=== PATIENT | female | born 1950 | race Caucasian/White ===

== ENCOUNTER 2017-04-23 10:58 | Emergency (ER) | payer OTHER ==
[2017-04-23 11:05] VITALS: BP 172/90; BMI 46.7
--- NOTE | 2017-04-23 11:49 | DR.GENAD ---
HPI - PCP Primary Care Physician: FERNY - Complaint/Symptoms Chief Complaint Doctors Comments: Patient also c/o tingling sensation in the right upper extremtiy. Denies pain. 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 - Family History History of Family Medical Conditions: Yes Family Medical History: Diabetes Mellitus, Cancer, [place] - Social History Does any household member use tobacco: No Alcohol Use: None Do you use any recreational Drugs:: No Lives With: Alone Lives Where: Home - infectious screening In the last 2 months have you had wt loss of >10#?: NO Have you had fever, night sweats or hemotysis?: No Have you traveled outside the country in the last 6 months?: Yes Details about traveling: [facility] 03/19/2017 Isolation: Standard ROS - Review of Systems Eyes: No Symptoms Reported ENTM: No Symptoms Reported Respiratoy: No Symptoms Reported Cardiovascular: No Symptoms Reported Gastrointestinal/Abdominal: No Symptoms Reported Genitourinary: No Symptoms Reported Neurological: No Symptoms Reported Musculoskeletal: Other (right upper extremiting tingling sensation) Integumentary: No Symptoms Reported Hematologic/Lymphatic: No Symptoms Reported Endocrine: No Symptoms Reported Psychiatric: No Symptoms Reported All Other Systems: Reviewed and Negative PE - Vital Signs Vitals: Temperature 98 F Pulse Rate 80 Respiratory Rate 20 Blood Pressure 172/90 O2 Sat by Pulse Oximetry 98 - General General Appearance: Alert, In No Apparent Distress - Head Head Exam: Normal Inspection, Atraumatic - Eyes Eye exam: Normal Appearance, PERRL, EOMI - ENT ENT Exam: Normal Exam External Ear Exam: Normal External Inspection TM/Canal Exam: Bilateral Normal Nose Exam: Normal Nose Exam Mouth Exam: Normal Inspection Throat Exam: Normal Inspection - Neck Neck Exam: Normal Inspection, Full ROM - Chest Chest Inspection: Normal Inspection - Respiratory Respiratory Exam: Normal Lung Sounds Bilat Respiratory Exam: Bilateral Clear to Auscultation - Cardiovascular Cardiovascular Exam: Regular Rate - Abdominal Exam Abdominal Exam: Normal Inspection Abdominal Tenderness: negative: RUQ, RLQ, LUQ, LLQ, Epigastrium, Suprapubic, Diffuse, Mild, Moderate, Severe, Other - Extremities Extremities Exam: Normal Inspection - Back Back Exam: Normal Inspection, Full ROM - Neurologic Neurological Exam: Alert, Oriented X3, CN II-XII Intact - Psychiatric Psychiatric Exam: Normal Affect, Normal Mood - Skin Skin Exam: Warm, Dry, Intact ROR - XRAY XRAY Interpreted by: Radiologist (Upper extremity: There is moderate multilevel spondylosis within the cervical spine most severe at C4-5,C5-6 and C6-7 with miold multilevel ficet arthropathy and uncovertebral hypertrophy which appears to be slightly asymmetrically worse on the left. No fracture spondyloslisthesis.) - Diagnosis Discharge Problem: Moderate multilevel spondylosis, Spondylosis of cervical spine with myelopathy - Discharge Plan Condition: Stable - Follow ups/Referrals Follow ups/Referrals: STEPH HUDDLESTON [Primary Care Provider] - 3 days - Instructions
--- NOTE | 2017-04-23 12:50 | RAD ---
The four views of the cervical spine Indication: Upper extremity tingling Findings: There is moderate multilevel spondylosis within the cervical spine most severe at C4-5, C5 -6 and C6-7 with mild multilevel facet arthropathy and uncovertebral hypertrophy which appears to be slightly asymmetrically worse on the left. No fracture spondylolisthesis. No prevertebral soft tiss ue swelling. Posterior elements demonstrate normal alignment. Cervicothoracic junction is intact. At lantoaxial joint is symmetric. Impression: No acute radiographic abnormality within the cervical spine. There is moderate multileve l spondylosis with brsy-uehbpej-hvah-right facet arthropathy and uncovertebral hypertrophy potential ly causing spinal canal and or neural foraminal narrowing and source of patient's radicular symptoms . Correlation with cervical spine MRI is recommended on a nonemergent basis. Reported By:
== END 2017-04-23 13:32 | disposition home or self-care (01) ==
LOC: ER 11:16
DX: M47.12 Other spondylosis with myelopathy, cervical region (principal)
CPT/HCPCS: 72040; 99282

== ENCOUNTER 2025-02-14 23:22 | Observation (INO) ==
--- NOTE | 2025-02-14 23:31 | DR.WEAKNES ---
HPI Time Seen Time Seen by Provider: 02/14/25 23:31 HPI Comment HPI Comment: 74 y/o with htn, dm and RA developed "numbness" in the rt face, tongue and teeth this afternoon; she later noticed tingling in her the fingers of her rt hand and then down into her rt foot so she came on in; she's noted no weakness, ataxia, dysarthria, dysphagia, stumbling or memory issues. She denies cp, sob, abd pain, n/v/d. 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 Family History Family Medical History: Diabetes Mellitus, Cancer and [place] Social History Do you use any recreational Drugs:: No ROS Review of Systems Constitutional: No Symptoms Reported Eyes: No Symptoms Reported ENTM: No Symptoms Reported Respiratoy: No Symptoms Reported Cardiovascular: No Symptoms Reported Gastrointestinal/Abdominal: No Symptoms Reported Genitourinary: No Symptoms Reported Neurological: See HPI; negative Headache, Weakness, Dizziness or Problems Walking Musculoskeletal: No Symptoms Reported Integumentary: No Symptoms Reported Hematologic/Lymphatic: No Symptoms Reported Endocrine: No Symptoms Reported Psychiatric: No Symptoms Reported PE Vital Signs Vitals: Vital Signs Temperature 98.3 F Pulse Rate 98 Pulse Rate 94 Pulse Rate 103 Pulse Rate 91 Respiratory Rate 20 Blood Pressure 132/63 O2 Sat by Pulse Oximetry 94 O2 Sat by Pulse Oximetry 96 O2 Sat by Pulse Oximetry 95 O2 Sat by Pulse Oximetry 94 General Limitations: No Limitations General Appearance: Alert and In No Apparent Distress Head Head Exam: Normal Inspection Eyes Eye exam: Normal Appearance Eyelids: Normal Inspection: Bilateral Pupils: Regular, Round: Bilateral Sclera/Conjunctival: Normal Inspection: Bilateral Anterior Chamber: Normal Inspection: Bilateral ENT ENT Exam: Normal Exam Mouth Exam: Normal Inspection Throat Exam: Normal Inspection Neck Neck Exam: Normal Inspection Chest Chest Inspection: Normal Inspection Respiratory Respiratory Exam: Normal Lung Sounds Bilat Respiratory Exam: Bilateral: Clear to Auscultation Cardiovascular Cardiovascular Exam: Regular Rate and Normal Rhythm Abdominal Exam Abdominal Exam: Normal Inspection, Normal Bowel Sounds and Soft Extremities Extremities Exam: Normal Inspection Back Back Exam: Normal Inspection Neurologic Neurological Exam: Alert and Oriented X3 Speech: Fluid Speech Motor Strength - LUE: 5/5 Motor Strength - RUE: 5/5 Motor Strength - LLE: 5/5 Motor Strength - RLE: 5/5 Psychiatric Psychiatric Exam: Normal Affect and Normal Mood Skin Skin Exam: Warm, Dry, Intact and Normal Color ROR Labs Reviewed Laboratory Results Reviewed?: Yes 02/14/25 23:53 02/14/25 23:53 Laboratory: WBC 6.7 X10^3/uL (3.6-10.0) 02/14/25 23:53 RBC 4.31 X10^6/uL (3.5-5.4) 02/14/25 23:53 Hgb 12.8 g/dL (12.0-16.0) 02/14/25 23:53 Hct 36.0 % (36.0-47.0) 02/14/25 23:53 MCV 83.5 fL (80.0-100.0) 02/14/25 23:53 MCH 29.6 pg (27.0-34.0) 02/14/25 23:53 MCHC 35.5 g/dL (33.0-35.0) H 02/14/25 23:53 RDW 13.7 % (11.6-16.5) 02/14/25 23:53 Plt Count 223 X10^3/uL (150.0-450.0) 02/14/25 23:53 MPV 8.1 fL (7.4-11.0) 02/14/25 23:53 Neut % (Auto) 61.8 % (42.0-75.0) 02/14/25 23:53 Lymph % (Auto) 25.7 % (21.0-51.0) 02/14/25 23:53 [place] % (Auto) 11.1 % (0.0-13.0) 02/14/25 23:53 Eos % (Auto) 0.7 % (0.9-2.9) L 02/14/25 23:53 Baso % (Auto) 0.7 % (0.2-1.0) 02/14/25 23:53 Neut # (Auto) 4.2 x10^3/uL (2.2-4.8) 02/14/25 23:53 Lymph # (Auto) 1.7 X10^3/uL (1.3-2.9) 02/14/25 23:53 [place] # (Auto) 0.7 x10^3/uL (0.3-0.8) 02/14/25 23:53 Eos # (Auto) 0.0 x10^3/uL (0.0-0.2) 02/14/25 23:53 Baso # (Auto) 0.0 X10^3/uL (0.0-0.1) 02/14/25 23:53 Absolute Nucleated RBC 0.2 /100WBC 02/14/25 23:53 PT 13.0 SECONDS (11.8-14.3) 02/14/25 23:53 INR Target Range - 02/14/25 23:53 INR 0.97 (0.8-1.3) 02/14/25 23:53 APTT 28.2 SECONDS (22.9-36.5) 02/14/25 23:53 PTT Comment - 02/14/25 23:53 Fibrinogen 280 mg/dL (239-489) 02/14/25 23:53 Sodium 140 mmol/L (136-145) 02/14/25 23:53 Corrected Sodium 141 mmol/L (136-145) 02/14/25 23:53 Potassium 3.9 mmol/L (3.5-5.1) 02/14/25 23:53 Chloride 102 mmol/L (98-107) 02/14/25 23:53 Carbon Dioxide 28.8 mmol/L (21-32) 02/14/25 23:53 BUN 18 mg/dL (7-18) 02/14/25 23:53 Creatinine 0.97 mg/dL (0.55-1.02) 02/14/25 23:53 Est GFR (MDRD) Af Amer > 60 (>60) 02/14/25 23:53 Est GFR (MDRD) Non-Af 60 (>60) 02/14/25 23:53 Glucose 133 mg/dL (65-99) H 02/14/25 23:53 Calcium 9.3 mg/dL (8.5-10.1) 02/14/25 23:53 Corrected Calcium TNP 02/14/25 23:53 Total Bilirubin 0.40 mg/dL (0.2-1.0) 02/14/25 23:53 AST 16 Units/L (15-37) 02/14/25 23:53 ALT 20 Units/L (12-78) 02/14/25 23:53 Alkaline Phosphatase 67 Units/L (46-116) 02/14/25 23:53 Creatine Kinase 39 Units/L (26-192) 02/14/25 23:53 Troponin I High Sens 8.5 ng/L (4.0-60.0) 02/14/25 23:53 Total Protein 6.7 g/dL (6.4-8.2) 02/14/25 23:53 Albumin 3.6 g/dL (3.4-5.0) 02/14/25 23:53 Globulin 3.1 g/dL (2.5-4.5) 02/14/25 23:53 Albumin/Globulin Ratio 1.2 Ratio (1.1-2.1) 02/14/25 23:53 Triglycerides 119 mg/dL (0-150) 02/14/25 23:53 Cholesterol 145 mg/dL (0-200) 02/14/25 23:53 LDL Cholesterol, Calc 58 mg/dL (0-100) 02/14/25 23:53 HDL Cholesterol 63 mg/dL (40-60) H 02/14/25 23:53 Cholesterol/HDL Ratio 2.3 (0.0-5.0) 02/14/25 23:53 Specimen Type Clean catch urine 02/15/25 00:20 Urine Color Yellow (YELLOW) 02/15/25 00:20 Urine Appearance Hazy (CLEAR) 02/15/25 00:20 Urine pH 6.5 (5.0 - 8.0) 02/15/25 00:20 Ur Specific [place] 1.010 (1.000-1.030) 02/15/25 00:20 Urine Protein Negative (NEGATIVE) 02/15/25 00:20 Urine Glucose (UA) Negative (NEGATIVE) 02/15/25 00:20 Urine Ketones Negative (NEGATIVE) 02/15/25 00:20 Urine Blood Negative (NEGATIVE) 02/15/25 00:20 Urine Nitrite Negative (NEGATIVE) 02/15/25 00:20 Urine Bilirubin Negative (NEGATIVE) 02/15/25 00:20 Urine Urobilinogen Normal (NORMAL) 02/15/25 00:20 Ur Leukocyte Esterase 2+ (NEGATIVE) 02/15/25 00:20 Urine RBC 3-5 /HPF (0-3) A 02/15/25 00:20 Urine WBC 5-10 /HPF (0-5) A 02/15/25 00:20 Ur Squamous Epith Cells Moderate /HPF (NEGATIVE) 02/15/25 00:20 Amorphous Sediment 1+ /HPF (NEGATIVE) 02/15/25 00:20 Urine Bacteria Trace /HPF (NEGATIVE) 02/15/25 00:20 Granular Casts Rare /LPF (NEGATIVE) 02/15/25 00:20 Ur Culture Indicated? No/not indicated 02/15/25 00:20 Blood Type O POSITIVE 02/14/25 23:55 Antibody Screen Negative 02/14/25 23:53 Other Results Comments: 74 y/o with dm, htn and RA evaluated to telestroke team; advised to keep overnight and get mri; she's to receive asa 324 and plavix 300 in the meantime. XRAY XRAY Interpreted by: Radiologist X-ray Results: ct brain: No evidence of acute intracranial process. Opioid Opioid Risk Tool Age (Chavez box if 16-45): No Total: 0 Total Score Risk Category: Low Risk Copyright: Evgeny COTA predicting aberrant behaviors Discharge Plan Diagnosis Discharge Problem: Numbness and tingling of right side of face, Right sided numbness Discharge Plan Patient Disposition: ADMITTED INPATIENT Condition: Stable Prescriptions: No Action carvedilol 12.5 mg tablet 12.5 mg PO BID (DME) OneTouch Ultra Test Strip MISCELLANEOUS glimepiride 1 mg tablet PO ergocalciferol (vitamin D2) [Vitamin D2] 1,250 mcg (50,000 unit) capsule PO hydroxychloroquine 200 mg tablet 200 mg PO BID losartan-hydrochlorothiazide 50-12.5 mg tablet 1 tab PO QDAY metformin 500 mg tablet extended release 24 hr 1,000 mg PO BID Ozempic 1 mg/dose (2 mg/1.5 mL) Pen Injector SUBCUT Health Concerns: Post Hospitalization: new medications and changes needed to prevent readmission or further decline. Pt educated and given instructions on all concerns. Plan of Treatment: Continue with present treatment and follow up plan. Pt is to keep follow up appointment as instructed and take medications as ordered. Follow ups/Referrals Follow ups/Referrals: [facility],None [Primary Care Provider] - 3 days
[2025-02-14 23:36] VITALS: BMI 40.6
--- NOTE | 2025-02-15 00:04 | EKG ---
Test Reason : right side numbess Blood Pressure : */* mmHG Vent. Rate : 84 BPM Atrial Rate : 84 BPM P-R Int : 174 ms QRS Dur : 98 ms QT Int : 376 ms P-R-T Axes : 49 23 36 degrees QTc Int : 444 ms Sinus rhythm with premature supraventricular complexes Otherwise normal ECG No previous ECGs available Confirmed by Dalton Norman MD ([id number]) on 02/15/2025 5:19:14 AM Referred By: Confirmed By: Dalton Norman MD
[2025-02-15 00:05] LABS: MEAN CORPUSCULAR HEMOGLOBIN 29.6 pg (27.0-34.0); PLATELET COUNT 223 X10^3/uL (150.0-450.0); RED BLOOD COUNT 4.31 X10^6/uL (3.5-5.4); RED CELL DISTRIBUTION WIDTH 13.7 % (11.6-16.5)
[2025-02-15 00:08] LABS: BASOPHILS % (AUTO) 0.7 % (0.2-1.0); EOSINOPHILS % (AUTO) 0.7 % (0.9-2.9); HEMOGLOBIN 12.8 g/dL (12.0-16.0); INR 0.97 (0.8-1.3); LYMPHOCYTES # (AUTO) 1.7 X10^3/uL (1.3-2.9); LYMPHOCYTES % (AUTO) 25.7 % (21.0-51.0); MEAN CORPUSCULAR HGB CONC 35.5 g/dL (33.0-35.0); MEAN CORPUSCULAR VOLUME 83.5 fL (80.0-100.0); MEAN PLATELET VOLUME 8.1 fL (7.4-11.0); MONOCYTES # (AUTO) 0.7 x10^3/uL (0.3-0.8); MONOCYTES % (AUTO) 11.1 % (0.0-13.0); NEUTROPHILS # (AUTO) 4.2 x10^3/uL (2.2-4.8); NEUTROPHILS % (AUTO) 61.8 % (42.0-75.0); WHITE BLOOD COUNT 6.7 X10^3/uL (3.6-10.0)
[2025-02-15 00:14] LABS: ALANINE AMINOTRANSFERASE 20 Units/L (12-78); ALBUMIN 3.6 g/dL (3.4-5.0); ALKALINE PHOSPHATASE 67 Units/L (46-116); ASPARTATE AMINO TRANSFERASE 16 Units/L (15-37); BLOOD UREA NITROGEN 18 mg/dL (7-18); CALCIUM 9.3 mg/dL (8.5-10.1); CARBON DIOXIDE 28.8 mmol/L (21-32); CHLORIDE 102 mmol/L (98-107); CHOL/HDL RATIO 2.3 (0.0-5.0); CHOLESTEROL 145 mg/dL (0-200); COR NA(FOR HYPERGLY) 141 mmol/L (136-145); CREATINE KINASE 39 Units/L (26-192); CREATININE 0.97 mg/dL (0.55-1.02); GLUCOSE 133 mg/dL (65-99); HDL CHOLESTEROL 63 mg/dL (40-60); POTASSIUM 3.9 mmol/L (3.5-5.1); SODIUM 140 mmol/L (136-145); TOTAL PROTEIN 6.7 g/dL (6.4-8.2); TRIGLYCERIDES 119 mg/dL (0-150); eGFR NON BLACK RACES 60 (>60)
--- NOTE | 2025-02-15 00:23 | CT ---
EXAM: CT HEAD WITHOUT CONTRAST HISTORY: Pt ambulatory in er with c/o right side numbness. 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 TECHNIQUE: Axial CT images were obtained through the brain without contrast. All CT scans at this facility use dose modulation, iterative reconstruction, and/or weight based dosi ng when appropriate to reduce radiation dose to as low as reasonably achievable. FINDINGS: BRAIN: There is moderate diffuse atrophy with proportionate enlargement of the cerebral sulci and laura tricular system. Decreased attenuation in the periventricular white matter is compatible with but n ot specific for chronic small vessel ischemic changes. No evidence of acute infarct intra or extraa xial hemorrhage mass effect or hydrocephalus. CALVARIUM: Normal ADDITIONAL FINDINGS: The visualized paranasal sinuses and mastoid air cells are clear. Orbits are savita ssly unremarkable. IMPRESSION: No evidence of acute intracranial process. THIS IS AN ELECTRONICALLY VERIFIED FINAL REPORT 02/15/2025 12:19 AM - Electronically signed by Dania Encarnacion MD
[2025-02-15 00:33] LABS: BILIRUBIN,URINE NEGATIVE (NEGATIVE); BLOOD/HEMOGLOBIN,URINE NEGATIVE (NEGATIVE); GLUCOSE, URINE NEGATIVE (NEGATIVE); KETONES,URINE NEGATIVE (NEGATIVE); LEUKOCYTE ESTERASE ,URINE 2+ (NEGATIVE); NITRITES,URINE NEGATIVE (NEGATIVE); PH,URINE 6.5 (5.0 - 8.0); PROTEIN,URINE NEGATIVE (NEGATIVE); UROBILINOGEN,URINE NORMAL (NORMAL)
[2025-02-15 00:43] LABS: APPEARANCE,URINE HAZY (CLEAR); COLOR,URINE YELLOW (YELLOW)
[2025-02-15 00:47] LABS: BACTERIA,URINE TRACE /HPF (NEGATIVE); GRANULAR CASTS,URINE RARE /LPF (NEGATIVE); SQUAMOUS EPITHELIAL CELL,UR MODERATE /HPF (NEGATIVE)
[2025-02-15] MEDS: PLAVIX PO STA (01:22)
[2025-02-15] MEDS: ASPIRIN 81 MG CHEWTAB PO STA (01:23)
[2025-02-15] MEDS: CONSULT PHARMACY - POTASSIUM & MAGNESIUM XX SCH (01:25)
[2025-02-15 06:08] LABS: BASOPHILS % (AUTO) 0.7 % (0.2-1.0); EOSINOPHILS % (AUTO) 0.8 % (0.9-2.9); HEMATOCRIT 35.7 % (36.0-47.0); HEMOGLOBIN 12.3 g/dL (12.0-16.0); LYMPHOCYTES # (AUTO) 1.4 X10^3/uL (1.3-2.9); LYMPHOCYTES % (AUTO) 24.7 % (21.0-51.0); MEAN CORPUSCULAR HGB CONC 34.6 g/dL (33.0-35.0); MEAN CORPUSCULAR VOLUME 83.9 fL (80.0-100.0); MONOCYTES # (AUTO) 0.7 x10^3/uL (0.3-0.8); MONOCYTES % (AUTO) 11.9 % (0.0-13.0); NEUTROPHILS # (AUTO) 3.5 x10^3/uL (2.2-4.8); NEUTROPHILS % (AUTO) 61.9 % (42.0-75.0); PLATELET COUNT 208 X10^3/uL (150.0-450.0); RED BLOOD COUNT 4.25 X10^6/uL (3.5-5.4); RED CELL DISTRIBUTION WIDTH 13.6 % (11.6-16.5); WHITE BLOOD COUNT 5.7 X10^3/uL (3.6-10.0)
[2025-02-15 06:25] LABS: ALANINE AMINOTRANSFERASE 18 Units/L (12-78); ALBUMIN 3.3 g/dL (3.4-5.0); ALKALINE PHOSPHATASE 58 Units/L (46-116); ASPARTATE AMINO TRANSFERASE 17 Units/L (15-37); BLOOD UREA NITROGEN 21 mg/dL (7-18); CALCIUM 9.2 mg/dL (8.5-10.1); CARBON DIOXIDE 31.2 mmol/L (21-32); CHLORIDE 103 mmol/L (98-107); COR CA(FOR HYPOALB) 9.8 mg/dL (8.5-10.1); COR NA(FOR HYPERGLY) 142 mmol/L (136-145); GLUCOSE 115 mg/dL (65-99); POTASSIUM 4.1 mmol/L (3.5-5.1); SODIUM 142 mmol/L (136-145); TOTAL PROTEIN 6.2 g/dL (6.4-8.2); eGFR NON BLACK RACES > 60 (>60)
--- NOTE | 2025-02-15 09:02 | RAD ---
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 No pneumothorax or effusion. Heart size is normal. The bones are unremarkable. IMPRESSION: 1. No significant abnormality THIS IS AN ELECTRONICALLY VERIFIED FINAL REPORT 02/15/2025 8:39 AM - Electronically signed by Bernardo Mg MD
[2025-02-15] MEDS: PLAQUENIL PO SCH (09:23)
[2025-02-15] MEDS: OXYBUTYNIN CHLORIDE ER PO SCH (09:23)
[2025-02-15] MEDS: COREG TAB 12.5 MG PO SCH (09:23)
[2025-02-15] MEDS: HYZAAR 50/12.5 MG PO SCH (09:23)
[2025-02-15] MEDS ORDERED: NovoLIN R (or HumuLIN R) SUBCUT PRN (09:55)
[2025-02-15] MEDS ORDERED: MULTIHANCE INJ VIAL ONE (10:45)
[2025-02-15] MEDS ORDERED: APRESOLINE INJ 20 MG VIAL IVP PRN (12:42)
--- NOTE | 2025-02-15 19:52 | MRI ---
EXAM: BRAIN W&W/O CON HISTORY: There is concern for acute infarction COMPARISON: None. TECHNIQUE: Multiplanar and multisequence MR images of the brain was obtained without and with IV contrast. FINDINGS: There is a subcentimeter punctate foci of restricted diffusion located in the left thalamus which dem onstrates corresponding low signal on the apparent diffusion coefficient map and high signal on the T 2 FLAIR sequence consistent with an acute infarct. There is an old infarct measuring 7 x 6 mm located in the right midbrain at the region of the cortica l spinal tracts. The ventricles are of normal size, shape, and contour for the patient's age. There are small nonspecific punctate areas of T2 weighted and T2 FLAIR weighted signal abnormalities in the deep frontal parietal white matter most likely representing small vessel ischemic changes whic h is to a degree I would consider within normal limits for the patient's stated age. The visualized intracranial vascular flow voids are unremarkable. There are no areas of restricted diffusion to suggest an acute infarct. There is no evidence of an intracranial mass lesion, intracranial hemorrhage, or hydrocephalus. The visualized portions of the orbits, calvarium, and skull base demonstrate no significant abnormali ties. There are no areas of masslike enhancement on the postcontrast sequences. IMPRESSION: 1. THERE IS A SUBCENTIMETER PUNCTATE FOCI OF RESTRICTED DIFFUSION LOCATED IN THE LEFT THALAMUS WHICH DEMONSTRATES CORRESPONDING LOW SIGNAL ON THE APPARENT DIFFUSION COEFFICIENT MAP AND HIGH SIGNAL ON TH E T2 FLAIR SEQUENCE CONSISTENT WITH AN ACUTE INFARCT. 2. THERE IS AN OLD INFARCT MEASURING 7 X 6 MM LOCATED IN THE RIGHT MIDBRAIN AT THE REGION OF THE FLOYD ICAL SPINAL TRACTS. 3. THERE ARE NO AREAS OF MASSLIKE ENHANCEMENT ON THE POSTCONTRAST SEQUENCES. THIS IS AN ELECTRONICALLY VERIFIED FINAL REPORT 02/15/2025 7:49 PM - Electronically signed by Sukhdeep Guillaume MD
[2025-02-16 06:44] LABS: BASOPHILS % (AUTO) 0.6 % (0.2-1.0); EOSINOPHILS # (AUTO) 0.1 x10^3/uL (0.0-0.2); HEMATOCRIT 36.1 % (36.0-47.0); HEMOGLOBIN 12.5 g/dL (12.0-16.0); LYMPHOCYTES # (AUTO) 1.1 X10^3/uL (1.3-2.9); LYMPHOCYTES % (AUTO) 20.8 % (21.0-51.0); MEAN CORPUSCULAR HEMOGLOBIN 29.4 pg (27.0-34.0); MEAN CORPUSCULAR HGB CONC 34.7 g/dL (33.0-35.0); MEAN CORPUSCULAR VOLUME 84.8 fL (80.0-100.0); MEAN PLATELET VOLUME 8.5 fL (7.4-11.0); MONOCYTES # (AUTO) 0.6 x10^3/uL (0.3-0.8); MONOCYTES % (AUTO) 11.9 % (0.0-13.0); NEUTROPHILS # (AUTO) 3.5 x10^3/uL (2.2-4.8); NEUTROPHILS % (AUTO) 65.7 % (42.0-75.0); PLATELET COUNT 207 X10^3/uL (150.0-450.0); RED BLOOD COUNT 4.25 X10^6/uL (3.5-5.4); RED CELL DISTRIBUTION WIDTH 13.6 % (11.6-16.5); WHITE BLOOD COUNT 5.4 X10^3/uL (3.6-10.0)
[2025-02-16 06:49] LABS: ALANINE AMINOTRANSFERASE 19 Units/L (12-78); ALBUMIN 3.5 g/dL (3.4-5.0); ALKALINE PHOSPHATASE 58 Units/L (46-116); ASPARTATE AMINO TRANSFERASE 19 Units/L (15-37); BLOOD UREA NITROGEN 16 mg/dL (7-18); CALCIUM 9.4 mg/dL (8.5-10.1); CARBON DIOXIDE 28.3 mmol/L (21-32); CHLORIDE 103 mmol/L (98-107); COR NA(FOR HYPERGLY) 142 mmol/L (136-145); CREATININE 0.85 mg/dL (0.55-1.02); GLUCOSE 123 mg/dL (65-99); POTASSIUM 3.8 mmol/L (3.5-5.1); SODIUM 141 mmol/L (136-145); TOTAL PROTEIN 6.5 g/dL (6.4-8.2); eGFR NON BLACK RACES > 60 (>60)
--- NOTE | 2025-02-16 08:48 | DR.H&P ---
H&P History & Physical for Day of: H&P Date: 02/15/25 Chief Complaint Chief Complaint: numbness & tingling on face and hands History of Present Illness History of Present Illness: Ms. Serrano is a 74-year-old female with a past medical history of hypertension, type 2 diabetes and history of CVA presented with numbness on the right side of her face along with some tingling in her hands and toes. She states she was playing cards when she noticed the symptoms. She denies having any weakness or any other neurological deficits. ER workup included CT brain which was negative for acute bleed or infarct. Telemetry neuro stroke was consulted and recommended MRI brain for further evaluation. Patient was given aspirin and Plavix in the ER. She is feeling better. She states her numbness and tingling is about the same. She denies having any upper or lower extremity weakness. She denies having any trouble with her speech or swallowing. Labs/imaging reviewed: - WBC 5.7 hemoglobin 12.3 platelet 208 creatinine 0.80 - CT brain reviewed Plan: Continue telemetry and neurochecks. MRI pending. Resume home medicati ons. Add SSI. Replace electrolytes as per protocol. Monitor blood pressure. PT/ OT as tolerated. Monitoring labs and imaging. 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 Family History Family Medical History: Diabetes Mellitus, Cancer, Heart Failure and Hyperten mimi Social History Does patient currently use any type of tobacco product: No Have you used tobacco products in the last 12 months: No Type of Tobacco Use: None Does any household member use tobacco: No Alcohol Use: None Drug Use: None Medications Home Medications: Home Medications Medication Instructions Recorded Confirmed Type carvedilol 12.5 mg tablet 12.5 mg PO BID 05/25/24 02/15/25 History ergocalciferol (vitamin D2) 1,250 1,250 mcg PO WEEKLY 05/25/24 02/15/25 History mcg (50,000 unit) capsule (Vitamin D2) hydroxychloroquine 200 mg tablet 200 mg PO BID 05/25/24 02/15/25 History losartan 50 mg-hydrochlorothiazide 1 tab PO QDAY 05/25/24 02/15/25 History 12.5 mg tablet semaglutide 1 mg/dose (2 mg/1.5 0.25 mg subcut WEEKLY 05/25/24 02/15/25 History mL) subcutaneous pen injector multivitamin 1 cap PO DAILY 02/15/25 02/15/25 History oxybutynin chloride 15 mg 15 mg PO QDAY 02/15/25 02/15/25 History tablet,extended release 24 hr Allergies Allergies Allergy/AdvReac Type Severity Reaction Status Date / Time No Known Drug Allergies Allergy Verified 04/23/17 11:05 Labs 02/16/25 05:14 02/16/25 05:14 Labs: Laboratory WBC 5.4 X10^3/uL (3.6-10.0) 02/16/25 05:14 RBC 4.25 X10^6/uL (3.5-5.4) 02/16/25 05:14 Hgb 12.5 g/dL (12.0-16.0) 02/16/25 05:14 Hct 36.1 % (36.0-47.0) 02/16/25 05:14 MCV 84.8 fL (80.0-100.0) 02/16/25 05:14 MCH 29.4 pg (27.0-34.0) 02/16/25 05:14 MCHC 34.7 g/dL (33.0-35.0) 02/16/25 05:14 RDW 13.6 % (11.6-16.5) 02/16/25 05:14 Plt Count 207 X10^3/uL (150.0-450.0) 02/16/25 05:14 MPV 8.5 fL (7.4-11.0) 02/16/25 05:14 Neut % (Auto) 65.7 % (42.0-75.0) 02/16/25 05:14 Lymph % (Auto) 20.8 % (21.0-51.0) L 02/16/25 05:14 [place] % (Auto) 11.9 % (0.0-13.0) 02/16/25 05:14 Eos % (Auto) 1.0 % (0.9-2.9) 02/16/25 05:14 Baso % (Auto) 0.6 % (0.2-1.0) 02/16/25 05:14 Neut # (Auto) 3.5 x10^3/uL (2.2-4.8) 02/16/25 05:14 Lymph # (Auto) 1.1 X10^3/uL (1.3-2.9) L 02/16/25 05:14 [place] # (Auto) 0.6 x10^3/uL (0.3-0.8) 02/16/25 05:14 Eos # (Auto) 0.1 x10^3/uL (0.0-0.2) 02/16/25 05:14 Baso # (Auto) 0.0 X10^3/uL (0.0-0.1) 02/16/25 05:14 Absolute Nucleated RBC 0.1 /100WBC 02/16/25 05:14 PT 13.0 SECONDS (11.8-14.3) 02/14/25 23:53 INR Target Range - 02/14/25 23:53 INR 0.97 (0.8-1.3) 02/14/25 23:53 APTT 28.2 SECONDS (22.9-36.5) 02/14/25 23:53 PTT Comment - 02/14/25 23:53 Fibrinogen 280 mg/dL (239-489) 02/14/25 23:53 Sodium 141 mmol/L (136-145) 02/16/25 05:14 Corrected Sodium 142 mmol/L (136-145) 02/16/25 05:14 Potassium 3.8 mmol/L (3.5-5.1) 02/16/25 05:14 Chloride 103 mmol/L (98-107) 02/16/25 05:14 Carbon Dioxide 28.3 mmol/L (21-32) 02/16/25 05:14 BUN 16 mg/dL (7-18) 02/16/25 05:14 Creatinine 0.85 mg/dL (0.55-1.02) 02/16/25 05:14 Est GFR (MDRD) Af Amer > 60 (>60) 02/16/25 05:14 Est GFR (MDRD) Non-Af > 60 (>60) 02/16/25 05:14 Glucose 123 mg/dL (65-99) H 02/16/25 05:14 POC Glucose (mg/dL) 126 mg/dL (65-99) H 02/16/25 05:20 Hemoglobin A1c 7.2 % 02/15/25 05:56 Calcium 9.4 mg/dL (8.5-10.1) 02/16/25 05:14 Corrected Calcium TNP 02/16/25 05:14 Total Bilirubin 0.50 mg/dL (0.2-1.0) 02/16/25 05:14 AST 19 Units/L (15-37) 02/16/25 05:14 ALT 19 Units/L (12-78) 02/16/25 05:14 Alkaline Phosphatase 58 Units/L (46-116) 02/16/25 05:14 Creatine Kinase 39 Units/L (26-192) 02/14/25 23:53 Troponin I High Sens 8.5 ng/L (4.0-60.0) 02/14/25 23:53 Total Protein 6.5 g/dL (6.4-8.2) 02/16/25 05:14 Albumin 3.5 g/dL (3.4-5.0) 02/16/25 05:14 Globulin 3.0 g/dL (2.5-4.5) 02/16/25 05:14 Albumin/Globulin Ratio 1.2 Ratio (1.1-2.1) 02/16/25 05:14 Triglycerides 119 mg/dL (0-150) 02/14/25 23:53 Cholesterol 145 mg/dL (0-200) 02/14/25 23:53 LDL Cholesterol, Calc 58 mg/dL (0-100) 02/14/25 23:53 HDL Cholesterol 63 mg/dL (40-60) H 02/14/25 23:53 Cholesterol/HDL Ratio 2.3 (0.0-5.0) 02/14/25 23:53 Specimen Type Clean catch urine 02/15/25 00:20 Urine Color Yellow (YELLOW) 02/15/25 00:20 Urine Appearance Hazy (CLEAR) 02/15/25 00:20 Urine pH 6.5 (5.0 - 8.0) 02/15/25 00:20 Ur Specific [place] 1.010 (1.000-1.030) 02/15/25 00:20 Urine Protein Negative (NEGATIVE) 02/15/25 00:20 Urine Glucose (UA) Negative (NEGATIVE) 02/15/25 00:20 Urine Ketones Negative (NEGATIVE) 02/15/25 00:20 Urine Blood Negative (NEGATIVE) 02/15/25 00:20 Urine Nitrite Negative (NEGATIVE) 02/15/25 00:20 Urine Bilirubin Negative (NEGATIVE) 02/15/25 00:20 Urine Urobilinogen Normal (NORMAL) 02/15/25 00:20 Ur Leukocyte Esterase 2+ (NEGATIVE) 02/15/25 00:20 Urine RBC 3-5 /HPF (0-3) A 02/15/25 00:20 Urine WBC 5-10 /HPF (0-5) A 02/15/25 00:20 Ur Squamous Epith Cells Moderate /HPF (NEGATIVE) 02/15/25 00:20 Amorphous Sediment 1+ /HPF (NEGATIVE) 02/15/25 00:20 Urine Bacteria Trace /HPF (NEGATIVE) 02/15/25 00:20 Granular Casts Rare /LPF (NEGATIVE) 02/15/25 00:20 Ur Culture Indicated? No/not indicated 02/15/25 00:20 Blood Type O POSITIVE 02/14/25 23:55 Antibody Screen Negative 02/14/25 23:53 Review of Systems Constitutional: No Symptoms Reported Eyes: No Symptoms Reported ENT: No Symptoms Reported Cardiovascular: No Symptoms Reported Gastrointestinal: No Symptoms Reported Genitourinary: No Symptoms Reported Musculoskeletal: No Symptoms Reported Skin: No Symptoms Reported Neurological: Numbness Physical Exam Vital Signs: Vital Signs Temperature 97.4 F Pulse Rate [Bilateral Radial] 82 Respiratory Rate 18 Blood Pressure [Left Arm] 138/61 O2 Sat by Pulse Oximetry 97 Oriented: Normal Eyes: Normal Throat: Normal Respiratory: Clear Throughout Auscultation: Bowel Sounds: Normal Palpation: Normal Tenderness: Normal Skin: Normal Musculoskeletal: Normal Psychiatric: Normal Mood Description: Calm Affect: Normal Speech Pattern: Clear and Appropriate Assessment/Plan (1) Numbness and tingling of right side of face: Status: Acute (2) Right sided numbness: Status: Acute (3) HTN (hypertension): Qualifiers: Hypertension type: primary hypertension Qualified Code(s): I10 - Essential (primary) hypertension Status: Chronic (4) Type 2 diabetes mellitus: Qualifiers: Diabetes mellitus complication status: without complication 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
--- NOTE | 2025-02-16 11:21 | PCM.PROG ---
Progress Note Progress Note for Day of Date of Exam: 02/16/25 Subjective Subjective: Patient is a 74-year-old female with a past medical history of hypertension, type 2 diabetes and history of CVA admitted for acute CVA. This morning reports she is feeling better and her numbness in her fingers has improved. She also reports her tongue feels normal again. She denies having any upper or lower extremity weakness. She denies having any trouble with her speech or swallowing. MRI does reveal that she has had a stroke. Discussed results with patient. Labs/imaging reviewed: - WBC 5.4, hemoglobin 12.5, platelets 207, sodium 141, potassium 3.8, creatinine 0.85, glucose 123 - MRI of the brain revealed acute CVA subcentimeter in the left thalamus. Plan: Continue telemetry and neurochecks. Will start patient on daily aspirin, Plavix, Lipitor. Will also get carotid ultrasound and echo. Resume home medications. Add SSI. Replace electrolytes as per protocol. Monitor blood pressure. PT/ OT as tolerated. Otherwise continue with current treatment plan. Monitoring labs and imaging. Time spent for clinical assessment, reviewing labs/imaging, physical exam, dec ision making and documentation greater than 45 mins. Past Medical Family Social History Allergies: Allergies No Known Drug Allergies Allergy (Verified 04/23/17 11:05) Review of Systems ROS changes noted: see HPI Vital Signs and I&O's Vital Signs: Vital Signs Temperature 97.6 F Temperature 97.4 F Pulse Rate [Bilateral Radial] 95 Pulse Rate [Bilateral Radial] 82 Respiratory Rate 18 Respiratory Rate 18 Blood Pressure [Left Arm] 137/63 Blood Pressure [Left Arm] 138/61 O2 Sat by Pulse Oximetry 98 O2 Sat by Pulse Oximetry 97 Intake and Output: Intake & Output 02/13/25 02/14/25 02/15/25 02/16/25 23:59 23:59 23:59 23:59 Intake Total 1600 / 1600 Balance 1600 / 1600 Physical Exam Oriented: Normal Eyes: Normal Throat: Normal Respiratory: Normal Cardiovascular: Normal Auscultation: Bowel Sounds: Normal Tenderness: Normal Skin: Normal Musculoskeletal: Normal Psychiatric: Normal Mood Description: Calm Affect: Normal Speech Pattern: Clear and Appropriate Laboratory and Diagnostics 02/16/25 05:14 02/16/25 05:14 Labs: Laboratory WBC 5.4 X10^3/uL (3.6-10.0) 02/16/25 05:14 RBC 4.25 X10^6/uL (3.5-5.4) 02/16/25 05:14 Hgb 12.5 g/dL (12.0-16.0) 02/16/25 05:14 Hct 36.1 % (36.0-47.0) 02/16/25 05:14 MCV 84.8 fL (80.0-100.0) 02/16/25 05:14 MCH 29.4 pg (27.0-34.0) 02/16/25 05:14 MCHC 34.7 g/dL (33.0-35.0) 02/16/25 05:14 RDW 13.6 % (11.6-16.5) 02/16/25 05:14 Plt Count 207 X10^3/uL (150.0-450.0) 02/16/25 05:14 MPV 8.5 fL (7.4-11.0) 02/16/25 05:14 Neut % (Auto) 65.7 % (42.0-75.0) 02/16/25 05:14 Lymph % (Auto) 20.8 % (21.0-51.0) L 02/16/25 05:14 [place] % (Auto) 11.9 % (0.0-13.0) 02/16/25 05:14 Eos % (Auto) 1.0 % (0.9-2.9) 02/16/25 05:14 Baso % (Auto) 0.6 % (0.2-1.0) 02/16/25 05:14 Neut # (Auto) 3.5 x10^3/uL (2.2-4.8) 02/16/25 05:14 Lymph # (Auto) 1.1 X10^3/uL (1.3-2.9) L 02/16/25 05:14 [place] # (Auto) 0.6 x10^3/uL (0.3-0.8) 02/16/25 05:14 Eos # (Auto) 0.1 x10^3/uL (0.0-0.2) 02/16/25 05:14 Baso # (Auto) 0.0 X10^3/uL (0.0-0.1) 02/16/25 05:14 Absolute Nucleated RBC 0.1 /100WBC 02/16/25 05:14 PT 13.0 SECONDS (11.8-14.3) 02/14/25 23:53 INR Target Range - 02/14/25 23:53 INR 0.97 (0.8-1.3) 02/14/25 23:53 APTT 28.2 SECONDS (22.9-36.5) 02/14/25 23:53 PTT Comment - 02/14/25 23:53 Fibrinogen 280 mg/dL (239-489) 02/14/25 23:53 Sodium 141 mmol/L (136-145) 02/16/25 05:14 Corrected Sodium 142 mmol/L (136-145) 02/16/25 05:14 Potassium 3.8 mmol/L (3.5-5.1) 02/16/25 05:14 Chloride 103 mmol/L (98-107) 02/16/25 05:14 Carbon Dioxide 28.3 mmol/L (21-32) 02/16/25 05:14 BUN 16 mg/dL (7-18) 02/16/25 05:14 Creatinine 0.85 mg/dL (0.55-1.02) 02/16/25 05:14 Est GFR (MDRD) Af Amer > 60 (>60) 02/16/25 05:14 Est GFR (MDRD) Non-Af > 60 (>60) 02/16/25 05:14 Glucose 123 mg/dL (65-99) H 02/16/25 05:14 POC Glucose (mg/dL) 126 mg/dL (65-99) H 02/16/25 05:20 Hemoglobin A1c 7.2 % 02/15/25 05:56 Calcium 9.4 mg/dL (8.5-10.1) 02/16/25 05:14 Corrected Calcium TNP 02/16/25 05:14 Total Bilirubin 0.50 mg/dL (0.2-1.0) 02/16/25 05:14 AST 19 Units/L (15-37) 02/16/25 05:14 ALT 19 Units/L (12-78) 02/16/25 05:14 Alkaline Phosphatase 58 Units/L (46-116) 02/16/25 05:14 Creatine Kinase 39 Units/L (26-192) 02/14/25 23:53 Troponin I High Sens 8.5 ng/L (4.0-60.0) 02/14/25 23:53 Total Protein 6.5 g/dL (6.4-8.2) 02/16/25 05:14 Albumin 3.5 g/dL (3.4-5.0) 02/16/25 05:14 Globulin 3.0 g/dL (2.5-4.5) 02/16/25 05:14 Albumin/Globulin Ratio 1.2 Ratio (1.1-2.1) 02/16/25 05:14 Triglycerides 119 mg/dL (0-150) 02/14/25 23:53 Cholesterol 145 mg/dL (0-200) 02/14/25 23:53 LDL Cholesterol, Calc 58 mg/dL (0-100) 02/14/25 23:53 HDL Cholesterol 63 mg/dL (40-60) H 02/14/25 23:53 Cholesterol/HDL Ratio 2.3 (0.0-5.0) 02/14/25 23:53 Specimen Type Clean catch urine 02/15/25 00:20 Urine Color Yellow (YELLOW) 02/15/25 00:20 Urine Appearance Hazy (CLEAR) 02/15/25 00:20 Urine pH 6.5 (5.0 - 8.0) 02/15/25 00:20 Ur Specific [place] 1.010 (1.000-1.030) 02/15/25 00:20 Urine Protein Negative (NEGATIVE) 02/15/25 00:20 Urine Glucose (UA) Negative (NEGATIVE) 02/15/25 00:20 Urine Ketones Negative (NEGATIVE) 02/15/25 00:20 Urine Blood Negative (NEGATIVE) 02/15/25 00:20 Urine Nitrite Negative (NEGATIVE) 02/15/25 00:20 Urine Bilirubin Negative (NEGATIVE) 02/15/25 00:20 Urine Urobilinogen Normal (NORMAL) 02/15/25 00:20 Ur Leukocyte Esterase 2+ (NEGATIVE) 02/15/25 00:20 Urine RBC 3-5 /HPF (0-3) A 02/15/25 00:20 Urine WBC 5-10 /HPF (0-5) A 02/15/25 00:20 Ur Squamous Epith Cells Moderate /HPF (NEGATIVE) 02/15/25 00:20 Amorphous Sediment 1+ /HPF (NEGATIVE) 02/15/25 00:20 Urine Bacteria Trace /HPF (NEGATIVE) 02/15/25 00:20 Granular Casts Rare /LPF (NEGATIVE) 02/15/25 00:20 Ur Culture Indicated? No/not indicated 02/15/25 00:20 Blood Type O POSITIVE 02/14/25 23:55 Antibody Screen Negative 02/14/25 23:53 Plan (1) Numbness and tingling of right side of face: Status: Acute (2) Right sided numbness: Status: Acute (3) HTN (hypertension): Status: Chronic Qualifiers: Hypertension type: primary hypertension Qualified Code(s): I10 - Essential (primary) hypertension (4) Type 2 diabetes mellitus: Status: Chronic Qualifiers: Diabetes mellitus ocean transportation intermediary insulin use: without ocean transportation intermediary use Diabetes mellitus complication status: without complication Qualified Code(s): E11.9 - Type 2 diabetes mellitus without complications
[2025-02-16] MEDS: ASPIRIN 81 MG CHEWTAB PO SCH (11:33)
[2025-02-16] MEDS: PLAVIX PO SCH (11:33)
--- NOTE | 2025-02-16 14:21 | VAS ---
EXAM:CAROTID USHISTORY:LEFT SIDED WEAKNESS;COMPARISON:None available.TECHNIQUE:Multiple reaves scale, duplex and color flow Doppler images of the right and left carotid arterial system were obtained. The vertebral arterial system was evaluated as well.FINDINGS:Nonocclusive color flow Doppler is seen throughout the right and left carotid arterial system.There is [id number] atherosclerotic plaque formation of the bilateral carotid bulbs and proximal ICAs with associated intimal thickening but without evidence for high-grade stenosis (>70%) or occlusion of the carotid arteries. The right and left vertebral artery demonstrate antegrade flow.There is patent flow and normal duplex waveforms within the right and left external carotid arteries.Peak right ICA velocity: 80 centimeter/seconds.Peak right CCA velocity: 62 centimeter/seconds.Right ICA to CCA ratio: 2.3.Peak left ICA velocity: 70 centimeter/seconds.Peak left CCA velocity: 97 centimeter/seconds.Left ICA to CCA ratio: 1.5.IMPRESSION:No hemodynamically significant carotid artery stenosis is seen.Mild/moderate bilateral CCA and proximal ICA atherosclerosis.Appropriate, antegrade, vertebral arterial flow seen bilaterally.THIS IS AN ELECTRONICALLY VERIFIED FINAL REPORT02/16/2025 2:18 PM - Electronically signed by Jae Diana MD
[2025-02-16] MEDS: LIPITOR TAB 40 MG PO SCH (21:54)
[2025-02-16] MEDS: SNACK - Diabetic Appropriate PO SCH (21:55)
[2025-02-17 04:28] VITALS: TEMP 97.6
[2025-02-17 06:25] LABS: BASOPHILS % (AUTO) 0.6 % (0.2-1.0); EOSINOPHILS # (AUTO) 0.1 x10^3/uL (0.0-0.2); HEMATOCRIT 35.4 % (36.0-47.0); HEMOGLOBIN 12.5 g/dL (12.0-16.0); LYMPHOCYTES # (AUTO) 1.1 X10^3/uL (1.3-2.9); LYMPHOCYTES % (AUTO) 19.3 % (21.0-51.0); MEAN CORPUSCULAR HEMOGLOBIN 29.8 pg (27.0-34.0); MEAN CORPUSCULAR HGB CONC 35.2 g/dL (33.0-35.0); MEAN CORPUSCULAR VOLUME 84.6 fL (80.0-100.0); MEAN PLATELET VOLUME 8.5 fL (7.4-11.0); MONOCYTES # (AUTO) 0.7 x10^3/uL (0.3-0.8); MONOCYTES % (AUTO) 11.4 % (0.0-13.0); NEUTROPHILS # (AUTO) 3.9 x10^3/uL (2.2-4.8); NEUTROPHILS % (AUTO) 67.7 % (42.0-75.0); PLATELET COUNT 223 X10^3/uL (150.0-450.0); RED BLOOD COUNT 4.19 X10^6/uL (3.5-5.4); RED CELL DISTRIBUTION WIDTH 13.7 % (11.6-16.5); WHITE BLOOD COUNT 5.8 X10^3/uL (3.6-10.0)
[2025-02-17 06:35] LABS: ALANINE AMINOTRANSFERASE 20 Units/L (12-78); ALBUMIN 3.4 g/dL (3.4-5.0); ALKALINE PHOSPHATASE 67 Units/L (46-116); ASPARTATE AMINO TRANSFERASE 17 Units/L (15-37); BLOOD UREA NITROGEN 19 mg/dL (7-18); CALCIUM 9.4 mg/dL (8.5-10.1); CARBON DIOXIDE 28.5 mmol/L (21-32); CHLORIDE 101 mmol/L (98-107); COR NA(FOR HYPERGLY) 140 mmol/L (136-145); CREATININE 0.85 mg/dL (0.55-1.02); GLUCOSE 156 mg/dL (65-99); MAGNESIUM 1.7 mg/dL (2.0-2.9); POTASSIUM 3.8 mmol/L (3.5-5.1); SODIUM 139 mmol/L (136-145); TOTAL PROTEIN 6.5 g/dL (6.4-8.2); eGFR NON BLACK RACES > 60 (>60)
[2025-02-17] MEDS ORDERED: CONSULT PHARMACY - POTASSIUM & MAGNESIUM XX SCH (07:00)
[2025-02-17] MEDS: K-DUR TAB 20 MEQ PO SCH (09:21)
[2025-02-17] MEDS: MAG-OX TAB PO SCH (09:23)
[2025-02-17 10:02] VITALS: BP 144/66; PULSE 90; RESP 18; O2SAT 98
--- NOTE | 2025-02-20 16:18 | W.DIS.FURT ---
Summary of Discharge Discharge Summary of Date Date of Exam: 02/17/25 Admission Date Date of Admission: 02/14/25 Admission Diagnosis Patient Problems (Updated 02/16/25 @ 08:47 by Samanta Fitzpatrick MD) Numbness and tingling of right side of face (Acute) R20.0, R20.2 Right sided numbness (Acute) R20.0 Hospital Course: Patient is a 74-year-old female with a past medical history of hypertension, type 2 diabetes and history of CVA admitted for acute CVA. MRI of the brain revealed acute CVA subcentimeter in the left thalamus. Pt was on telemetry and neurochecks, PT/OT. She was started on daily aspirin, Plavix, Lipitor. Carotid U/S no significant stenosis and Echo pEF. Patient responded treatments and symptoms significantly improved. She does still have a little residual tingling sensation in her right upper extremity. Otherwise all other symptoms have resolved. She was discharged in stable condition. Instructed follow-up with her PCP in 1 week. Vital Signs: Vital Signs (72 hours) 02/14/25 23:32 02/14/25 23:59 02/15/25 00:00 Temperature 98.3 F Pulse Rate 91 H 103 H 94 H Pulse Rate [Bilateral Radial] Respiratory Rate 20 Blood Pressure 132/63 Blood Pressure [Left Arm] O2 Sat by Pulse Oximetry 94 L 95 96 Oxygen Delivery Method Room Air 02/15/25 00:16 02/15/25 00:30 02/15/25 00:45 Temperature Pulse Rate 98 H 91 H 90 Pulse Rate [Bilateral Radial] Respiratory Rate Blood Pressure Blood Pressure [Left Arm] O2 Sat by Pulse Oximetry 94 L 96 95 Oxygen Delivery Method 02/15/25 01:00 02/15/25 01:15 02/15/25 01:37 Temperature Pulse Rate 90 90 Pulse Rate [Bilateral Radial] Respiratory Rate 19 Blood Pressure Blood Pressure [Left Arm] O2 Sat by Pulse Oximetry 95 96 Oxygen Delivery Method 02/15/25 01:30 02/15/25 01:35 02/15/25 01:35 Temperature Pulse Rate 89 89 Pulse Rate [Bilateral Radial] Respiratory Rate Blood Pressure 122/61 Blood Pressure [Left Arm] O2 Sat by Pulse Oximetry 96 97 Oxygen Delivery Method 02/15/25 02:00 02/15/25 04:00 02/15/25 07:00 Temperature 98.0 F Pulse Rate Pulse Rate [Bilateral Radial] 90 Respiratory Rate 18 Blood Pressure Blood Pressure [Left Arm] 144/69 O2 Sat by Pulse Oximetry 96 Oxygen Delivery Method Room Air Room Air Room Air 02/15/25 08:00 02/15/25 12:00 02/15/25 15:00 Temperature 97.3 F L 97.3 F L 97.1 F L Pulse Rate Pulse Rate [Bilateral Radial] 92 H 90 84 Respiratory Rate 19 18 20 Blood Pressure Blood Pressure [Left Arm] 160/73 170/82 145/64 O2 Sat by Pulse Oximetry 92 L 93 L 97 Oxygen Delivery Method Room Air Room Air Room Air 02/15/25 19:00 02/15/25 20:00 02/16/25 00:00 Temperature 97.4 F L 97.4 F L Pulse Rate Pulse Rate [Bilateral Radial] 85 89 Respiratory Rate 20 16 Blood Pressure Blood Pressure [Left Arm] 150/68 143/66 O2 Sat by Pulse Oximetry 96 94 L Oxygen Delivery Method Room Air Room Air Room Air 02/16/25 04:00 02/16/25 08:00 02/16/25 11:45 Temperature 97.4 F L 97.6 F Pulse Rate Pulse Rate [Bilateral Radial] 82 95 H Respiratory Rate 18 18 Blood Pressure Blood Pressure [Left Arm] 138/61 137/63 O2 Sat by Pulse Oximetry 97 98 Oxygen Delivery Method Room Air Room Air Room Air 02/16/25 12:00 02/16/25 16:51 02/16/25 19:00 Temperature 97.6 F 97.6 F Pulse Rate Pulse Rate [Bilateral Radial] 90 89 Respiratory Rate 18 19 Blood Pressure Blood Pressure [Left Arm] 130/60 142/67 O2 Sat by Pulse Oximetry 99 97 Oxygen Delivery Method Room Air Room Air Room Air 02/16/25 20:00 02/17/25 00:00 02/17/25 04:00 Temperature 97.9 F 98.1 F 97.6 F Pulse Rate Pulse Rate [Bilateral Radial] 89 95 H 87 Respiratory Rate 16 16 16 Blood Pressure Blood Pressure [Left Arm] 147/62 136/61 156/68 O2 Sat by Pulse Oximetry 95 96 96 Oxygen Delivery Method Room Air Room Air Labs: Laboratory Last Values WBC 5.8 X10^3/uL (3.6-10.0) 02/17/25 05:13 RBC 4.19 X10^6/uL (3.5-5.4) 02/17/25 05:13 Hgb 12.5 g/dL (12.0-16.0) 02/17/25 05:13 Hct 35.4 % (36.0-47.0) L 02/17/25 05:13 MCV 84.6 fL (80.0-100.0) 02/17/25 05:13 MCH 29.8 pg (27.0-34.0) 02/17/25 05:13 MCHC 35.2 g/dL (33.0-35.0) H 02/17/25 05:13 RDW 13.7 % (11.6-16.5) 02/17/25 05:13 Plt Count 223 X10^3/uL (150.0-450.0) 02/17/25 05:13 MPV 8.5 fL (7.4-11.0) 02/17/25 05:13 Neut % (Auto) 67.7 % (42.0-75.0) 02/17/25 05:13 Lymph % (Auto) 19.3 % (21.0-51.0) L 02/17/25 05:13 [place] % (Auto) 11.4 % (0.0-13.0) 02/17/25 05:13 Eos % (Auto) 1.0 % (0.9-2.9) 02/17/25 05:13 Baso % (Auto) 0.6 % (0.2-1.0) 02/17/25 05:13 Neut # (Auto) 3.9 x10^3/uL (2.2-4.8) 02/17/25 05:13 Lymph # (Auto) 1.1 X10^3/uL (1.3-2.9) L 02/17/25 05:13 [place] # (Auto) 0.7 x10^3/uL (0.3-0.8) 02/17/25 05:13 Eos # (Auto) 0.1 x10^3/uL (0.0-0.2) 02/17/25 05:13 Baso # (Auto) 0.0 X10^3/uL (0.0-0.1) 02/17/25 05:13 Absolute Nucleated RBC 0.1 /100WBC 02/17/25 05:13 PT 13.0 SECONDS (11.8-14.3) 02/14/25 23:53 INR Target Range - 02/14/25 23:53 INR 0.97 (0.8-1.3) 02/14/25 23:53 APTT 28.2 SECONDS (22.9-36.5) 02/14/25 23:53 PTT Comment - 02/14/25 23:53 Fibrinogen 280 mg/dL (239-489) 02/14/25 23:53 Sodium 139 mmol/L (136-145) 02/17/25 05:13 Corrected Sodium 140 mmol/L (136-145) 02/17/25 05:13 Potassium 3.8 mmol/L (3.5-5.1) 02/17/25 05:13 Chloride 101 mmol/L (98-107) 02/17/25 05:13 Carbon Dioxide 28.5 mmol/L (21-32) 02/17/25 05:13 BUN 19 mg/dL (7-18) H 02/17/25 05:13 Creatinine 0.85 mg/dL (0.55-1.02) 02/17/25 05:13 Est GFR (MDRD) Af Amer > 60 (>60) 02/17/25 05:13 Est GFR (MDRD) Non-Af > 60 (>60) 02/17/25 05:13 Glucose 156 mg/dL (65-99) H 02/17/25 05:13 POC Glucose (mg/dL) 146 mg/dL (65-99) H 02/17/25 05:31 Hemoglobin A1c 7.2 % 02/15/25 05:56 Calcium 9.4 mg/dL (8.5-10.1) 02/17/25 05:13 Corrected Calcium TNP 02/17/25 05:13 Magnesium 1.7 mg/dL (2.0-2.9) L 02/17/25 05:13 Total Bilirubin 0.40 mg/dL (0.2-1.0) 02/17/25 05:13 AST 17 Units/L (15-37) 02/17/25 05:13 ALT 20 Units/L (12-78) 02/17/25 05:13 Alkaline Phosphatase 67 Units/L (46-116) 02/17/25 05:13 Creatine Kinase 39 Units/L (26-192) 02/14/25 23:53 Troponin I High Sens 8.5 ng/L (4.0-60.0) 02/14/25 23:53 Total Protein 6.5 g/dL (6.4-8.2) 02/17/25 05:13 Albumin 3.4 g/dL (3.4-5.0) 02/17/25 05:13 Globulin 3.1 g/dL (2.5-4.5) 02/17/25 05:13 Albumin/Globulin Ratio 1.1 Ratio (1.1-2.1) 02/17/25 05:13 Triglycerides 119 mg/dL (0-150) 02/14/25 23:53 Cholesterol 145 mg/dL (0-200) 02/14/25 23:53 LDL Cholesterol, Calc 58 mg/dL (0-100) 02/14/25 23:53 HDL Cholesterol 63 mg/dL (40-60) H 02/14/25 23:53 Cholesterol/HDL Ratio 2.3 (0.0-5.0) 02/14/25 23:53 Specimen Type Clean catch urine 02/15/25 00:20 Urine Color Yellow (YELLOW) 02/15/25 00:20 Urine Appearance Hazy (CLEAR) 02/15/25 00:20 Urine pH 6.5 (5.0 - 8.0) 02/15/25 00:20 Ur Specific [place] 1.010 (1.000-1.030) 02/15/25 00:20 Urine Protein Negative (NEGATIVE) 02/15/25 00:20 Urine Glucose (UA) Negative (NEGATIVE) 02/15/25 00:20 Urine Ketones Negative (NEGATIVE) 02/15/25 00:20 Urine Blood Negative (NEGATIVE) 02/15/25 00:20 Urine Nitrite Negative (NEGATIVE) 02/15/25 00:20 Urine Bilirubin Negative (NEGATIVE) 02/15/25 00:20 Urine Urobilinogen Normal (NORMAL) 02/15/25 00:20 Ur Leukocyte Esterase 2+ (NEGATIVE) 02/15/25 00:20 Urine RBC 3-5 /HPF (0-3) A 02/15/25 00:20 Urine WBC 5-10 /HPF (0-5) A 02/15/25 00:20 Ur Squamous Epith Cells Moderate /HPF (NEGATIVE) 02/15/25 00:20 Amorphous Sediment 1+ /HPF (NEGATIVE) 02/15/25 00:20 Urine Bacteria Trace /HPF (NEGATIVE) 02/15/25 00:20 Granular Casts Rare /LPF (NEGATIVE) 02/15/25 00:20 Ur Culture Indicated? 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 Pt is to keep follow up appointment as instructed and take medications as ordered. Discharge Medications Discharge Medications: No Known Drug Allergies Allergy (Verified 04/23/17 11:05) CONTINUE taking the following medications multivitamin 1 cap PO DAILY 02/15/25 [History] oxybutynin chloride 15 mg tablet,extended release 24 hr 15 mg PO QDAY 02/15/25 [History] Discharge Disposition Assessment: No distress noted. Discharge Plan Discharge Plan Hospital Course: Patient is a 74-year-old female with a past medical history of hypertension, type 2 diabetes and history of CVA admitted for acute CVA. MRI of the brain revealed acute CVA subcentimeter in the left thalamus. Pt was on telemetry and neurochecks, PT/OT. She was started on daily aspirin, Plavix, Lipitor. Carotid U/S no significant stenosis and Echo pEF. Patient responded treatments and symptoms significantly improved. She does still have a little residual tingling sensation in her right upper extremity. Otherwise all other symptoms have resolved. She was discharged in stable condition. Instructed follow-up with her PCP in 1 week. Patient Disposition: HOME, SELF-CARE Condition: Stable Health Concerns: Post Hospitalization: new medications and changes needed to prevent readmission or further decline. Pt educated and given instructions on all concerns. Care Plan Goals: Problem: Activity Intolerance Goal: Increased tolerance to activity Instructions: Follow provided instructions. Follow up with primary physician as directed. Contact primary care physician or report to the closest Emergency Room if condition worsens. Plan of Treatment: Continue with present treatment and follow up plan. Pt is to keep follow up appointment as instructed and take medications as ordered. Assessment: No distress noted. Prescriptions: New atorvastatin 40 mg Tablet 40 mg PO QHS 30 Days Qty: 30 0RF clopidogrel 75 mg Tablet 75 mg PO QDAY 30 Days Qty: 30 0RF aspirin [Enteric Coated Aspirin] 81 mg Tablet,Delayed Release (Dr/Ec) 81 mg PO QDAY 30 Days Qty: 30 0RF Continued carvedilol 12.5 mg tablet 12.5 mg PO BID ergocalciferol (vitamin D2) [Vitamin D2] 1,250 mcg (50,000 unit) capsule 1,250 mcg PO WEEKLY hydroxychloroquine 200 mg tablet 200 mg PO BID losartan-hydrochlorothiazide 50-12.5 mg tablet 1 tab PO QDAY semaglutide 1 mg/dose (2 mg/1.5 mL) Pen Injector 0.25 mg SUBCUT WEEKLY multivitamin Capsule 1 cap PO DAILY oxybutynin chloride 15 mg tablet extended release 24hr 15 mg PO QDAY Orders to Discharge Patient Discharge Orders: Discharge (Routine); Ordered 02/17/25 Ordered By: Sameer Strickland Follow ups/Referrals Follow ups/Referrals: BLAINE SMITH [REFERRING] - 02/21/25 9:45 am Instructions Instructions: Transient Ischemic Attack, [id number], Managing Your Hypertension, Blood Glucose Monitoring, Adult Stand Alone Forms: Find Help Web Site, Post Hospital Follow Up Care
== END 2025-02-17 11:40 | disposition home or self-care (01) ==
LOC: MED/SURG 23:22 → ER 23:22 → MED/SURG 02-15 01:37
PROVIDERS: ADMIT Internal Medicine; ATTEND Internal Medicine
DX: Z66 Do not resuscitate; R20.0 Anesthesia of skin; I63.89 Other cerebral infarction; E11.65 Type 2 diabetes mellitus with hyperglycemia; R01.1 Cardiac murmur, unspecified; Z86.73 Personal history of transient ischemic attack (TIA), and cerebral infarction without residual deficits; R20.2 Paresthesia of skin; M06.9 Rheumatoid arthritis, unspecified; E83.42 Hypomagnesemia; I10 Essential (primary) hypertension